=== PATIENT | male | born 1950 | race Caucasian/White ===

== ENCOUNTER 2021-06-16 13:18 | Inpatient (IN) ==
[2021-06-16] MEDS ORDERED: Naloxone 0.4 MG/ML INJ IVP PRN (18:01)
[2021-06-16] MEDS ORDERED: Ondansetron 4 MG/2 ML VIAL IVP PRN (18:01)
[2021-06-16] MEDS ORDERED: Acetaminophen 325 MG TABLET PO PRN (18:05)
[2021-06-16] MEDS ORDERED: *HR* Heparin 5,000 UNIT/ML VIAL IVP PRN ×2 (18:11)
[2021-06-16] MEDS ORDERED: Perflutren Lipid Microsphere 1.3 ML in 0.9 % Sodium Chloride 8.7 ML IVP PRN (19:27)
[2021-06-16] MEDS: Heparin 25,000UNIT/250ML 1/2NS 25,000 UNIT/250 ML IV.SOLN IVC SCH (19:27)
[2021-06-16] MEDS ORDERED: *HR* LORazepam 2 MG/ML VIAL IVP ONE (19:48)
[2021-06-16 20:26] LABS: Hematocrit 39.5 % (37.5-50.1); Hemoglobin 12.8 g/dL (12.9-16.9); Mean Corpuscular HGB Conc 32.4 g/dL (31.6-35.5); Mean Corpuscular Hemoglobin 27.1 pg (28.0-33.3); Mean Corpuscular Volume 83.7 fL (83.0-100.0); Mean Platelet Volume 10.5 fL (9.4-12.4); Platelet Count 206 K/mcL (140-400); Red Blood Count 4.72 M/mcL (4.19-5.50); Red Cell Distribution Width 14.6 % (11.5-14.5); White Blood Count 17.8 K/mcL (4.3-11.1)
[2021-06-16 20:32] LABS: Heparin anti-factor XA UFH 0.13 IU/mL (0.30-0.70); INR 1.3; Prothrombin Time 14.3 Seconds (9.4-12.1)
[2021-06-16] MEDS: Ipratropium 1 PUFF INHALER IH SCH (20:56)
[2021-06-16 21:25] LABS: Troponin I 0.13 ng/mL (< 0.04)
[2021-06-16] MEDS ORDERED: Azithromycin 500 MG in 0.9 % Sodium Chloride 250 ML IVPB SCH (22:00)
[2021-06-16] MEDS ORDERED: *HR* LORazepam 2 MG/ML VIAL IVP PRN (23:00)
[2021-06-16] MEDS: cefTRIAXone 1,000 MG in Water for inj. (sterile) 10 ML IVP SCH (23:55)
[2021-06-17] MEDS: Ipratropium 1 PUFF INHALER IH SCH ×5 (00:26→16:18)
[2021-06-17] MEDS: Dexmedetomidine HCl 400 MCG/100 ML MLS IVC SCH ×3 (01:14→15:01)
[2021-06-17 02:27] LABS: Basophils % 0.1 %; Hematocrit 38.5 % (37.5-50.1); Hemoglobin 12.7 g/dL (12.9-16.9); Immature Granulocytes % 1.1 % (0-4); Lymphocytes # 0.7 K/mcL (0.6-4.6); Lymphocytes % 4.1 %; Mean Corpuscular Hemoglobin 27.6 pg (28.0-33.3); Mean Corpuscular Volume 83.7 fL (83.0-100.0); Mean Platelet Volume 10.1 fL (9.4-12.4); Monocytes # 1.1 K/mcL (0.0-1.3); Monocytes % 6.2 %; Neutrophils # 15.4 K/mcL (1.6-8.9); Platelet Count 193 K/mcL (140-400); Red Cell Distribution Width 14.8 % (11.5-14.5); Segmented Neutrophils % 88.5 %; White Blood Count 17.3 K/mcL (4.3-11.1)
[2021-06-17 02:46] LABS: Alanine Aminotransferase 27 Units/L (7-52); Albumin 3.1 g/dL (3.5-5.7); Albumin/Globulin Ratio 0.9 (1.1-2.2); Alkaline Phosphatase 72 Units/L (34-104); Aspartate Amino Transferase 41 Units/L (13-39); BUN/Creatinine Ratio 24 (6-26); Blood Urea Nitrogen 21 mg/dL (8-23); Calcium 8.5 mg/dL (8.6-10.3); Carbon Dioxide 30 mEq/L (23-29); Chloride 100 mEq/L (98-107); Glucose 172 mg/dL (70-105); Osmolality,Calculated 291 (280-300); Potassium 3.7 mEq/L (3.5-5.1); Sodium 137 mEq/L (136-145); Total Protein 6.5 g/dL (6.4-8.9); eGFR For African Americans > 60 (> 60); eGFR For Non-African Americans > 60 (> 60)
[2021-06-17 02:47] LABS: Globulin 3.4 g/dL (2.4-3.5)
[2021-06-17] MEDS: cefTRIAXone 1,000 MG in Water for inj. (sterile) 10 ML IVP SCH (07:52)
[2021-06-17] MEDS ORDERED: Pantoprazole 40 MG VIAL IVP SCH (09:00)
[2021-06-17] MEDS ORDERED: Aspirin 81 MG TAB.CHEW PO SCH (09:00)
[2021-06-17] MEDS ORDERED: Lidocaine -MPF 1% 5 ML AMPUL INFILT ONE (13:10)
[2021-06-17 15:28] VITALS: BP 160/107; PULSE 98; TEMP 98.3; O2SAT 90
[2021-06-17] MEDS: Heparin 25,000UNIT/250ML 1/2NS 25,000 UNIT/250 ML IV.SOLN IVC SCH (15:42)
[2021-06-17] MEDS ORDERED: 0.9 % Sodium Chloride 1,000 ML ONE (16:58)
[2021-06-17] MEDS ORDERED: Morphine Sulfate 2 MG/ML SYRINGE IVP ONE (17:14)
[2021-06-17] MEDS ORDERED: *HR* LORazepam 2 MG/ML VIAL IVP ONE (17:14)
[2021-06-17] MEDS ORDERED: Morphine Sulfate 2 MG/ML SYRINGE IVP PRN (17:31)
[2021-06-17] MEDS ORDERED: *HR* LORazepam 2 MG/ML VIAL IVP PRN (17:31)
[2021-06-17] MEDS ORDERED: *HR* Midazolam HCl 5 MG/5 ML VIAL IVP ONE (17:35)
[2021-06-17] MEDS ORDERED: *HR* Propofol 200 MG/20 ML VIAL IVP ONE (17:35)
[2021-06-17] MEDS ORDERED: *HR* Succinylcholine 200 MG/10 ML VIAL IVP ONE (17:35)
== END 2021-06-17 21:05 | disposition expired | DRG 208 ==
LOC: 2NENU → SUATTDRO 19:58
PROVIDERS: ADMIT Family Medicine; ATTEND Internal Medicine